=== PATIENT | female | born 1975 | race Two or more races ===

== ENCOUNTER 2017-09-09 22:50 | Inpatient (IN) | payer SELFPAY ==
[~2017-09-09] VITALS: Ht 154.9 cm; Wt 59.9 kg
[2017-09-09] MEDS ORDERED: METHYLPREDNISOLONE SOD SUCC 125 MG/2 ML VIAL IV STA (23:05)
[2017-09-09] MEDS ORDERED: ASPIRIN 81MG TABLET PO ONE (23:15)
[2017-09-09] MEDS ORDERED: MAGNESIUM 2 G PREMIX 50 ML IV ONE (23:15)
[2017-09-09 23:36] LABS: BG BASE EXCESS -4.1 mmol/L (-2.0-2.0); BG CARBOXYHEMOGLOBIN 0.4 % (0.5-1.5); BG FRACTION INSPIRED OXYGEN 24; BG HCO3 ACT 19.6 mmol/L (22.0-26.0); BG METHEMOGLOBIN 0.2 % (0.0-1.5); BG OXYGEN SATURATION 90.9 % (92.0-98.5); BG OXYHEMOGLOBIN 90.4 % (94.0-97.0); BG PCO2 32.5 mmHg (35.0-45.0); BG PH 7.398 (7.350-7.450); BG PO2 61.9 mmHg (75.0-100.0); BG SAMPLE SITE RIGHT RADIAL; BG TOTAL HEMOGLOBIN 15.6 g/dL (12.0-18.0); BG VENT MODE NASAL CANNULA
[2017-09-09 23:37] LABS: BASOPHILS % 0.6 % (0.0-2.0); EOSINOPHILS % 4.2 % (0.0-5.0); HEMATOCRIT. 44.8 % (36.0-48.0); HEMOGLOBIN. 14.8 g/dL (12.0-16.0); LYMPHOCYTES % 16.2 % (20.0-50.0); MEAN CORPUSCULAR VOLUME 90.8 fL (81.0-99.0); MEAN PLATELET VOLUME 9.7 fl (7.4-10.4); PLATELET 260 x1000/uL (130-400); RED BLOOD CELL COUNT 4.94 mill/uL (4.2-5.4); RED CELL DISTRIBUTION WIDTH 12.6 % (11.6-14.6)
[2017-09-09 23:41] LABS: D-DIMER 0.82 mg/L FEU (<0.50); INR 1.1; PROTHROMBIN TIME 11.2 sec (9.4-11.6)
[2017-09-09 23:53] LABS: HCG SCREEN NEGATIVE
[2017-09-10 00:01] LABS: CARBON DIOXIDE 23 mEq/L (21-32); CHLORIDE 107 mEq/L (98-107); ETHANOL BLOOD < 10 mg/dL; TROPONIN I < 0.02 ng/mL (0.00-0.04)
[2017-09-10] MEDS ORDERED: AZITHROMYCIN 500 MG in DEXT 5% WATER 250 ML IV NR (00:15)
[2017-09-10] MEDS ORDERED: CEFTRIAXONE 1 G PREMIX 50 ML IV NR (00:15)
[2017-09-10] MEDS ORDERED: SODIUM CHLORIDE 0.9% 1000ML BAG (SEPSIS BOLUS) IV NR (00:15)
[2017-09-10 01:25] LABS: *AMPHETAMINES SCREEN URINE NEGATIVE (NEGATIVE); *BARBITURATES SCREEN URINE NEGATIVE (NEGATIVE); *BENZODIAZEPINES SCREEN URINE NEGATIVE (NEGATIVE); *COCAINE SCREEN URINE NEGATIVE (NEGATIVE); CANNABINOID URINE SCREEN NEGATIVE (NEGATIVE); METHADONE URINE SCREEN NEGATIVE (NEGATIVE); OPIATES URINE SCREEN NEGATIVE (NEGATIVE); PHENCYCLIDINE URINE SCREEN NEGATIVE (NEGATIVE)
[2017-09-10] MEDS ORDERED: SODIUM CHLORIDE 0.9% 1,000 ML IV NR (01:50)
[2017-09-10] MEDS ORDERED: IOHEXOL-350 100 ML BOTTLE ONE (03:09)
[2017-09-10] MEDS ORDERED: HYDROCODONE/ACETAMINOPHEN 5/325MG TABLET PO ONE (04:30)
[2017-09-10 08:15] VITALS: BP 109/67
[2017-09-10 12:00] VITALS: BP 106/67
[2017-09-10] MEDS ORDERED: IPRATROPIUM/ALBUTEROL 0.5-3(2.5)MG/3ML NEB INH PRN (12:30)
[2017-09-10] MEDS ORDERED: ONDANSETRON HCL 4MG/2ML VIAL IV PRN (12:30)
[2017-09-10] MEDS ORDERED: ACETAMINOPHEN 325MG TABLET PO PRN (12:30)
[2017-09-10] MEDS ORDERED: CLONIDINE 0.1MG TABLET PO PRN (12:30)
[2017-09-10] MEDS ORDERED: HYDROCODONE/ACETAMINOPHEN 5/325MG TABLET PO PRN (12:30)
[2017-09-10] MEDS ORDERED: DIPHENHYDRAMINE 50MG/ML VIAL IV PRN (12:30)
[2017-09-10] MEDS: METHYLPREDNISOLONE SOD SUCC 125 MG/2 ML VIAL IV SCH ×2 (13:23→20:36)
[2017-09-10] MEDS: IPRATROPIUM/ALBUTEROL 0.5-3(2.5)MG/3ML NEB INH SCH ×3 (14:03→20:50)
[2017-09-10 16:00] VITALS: BP 105/63
[2017-09-10 20:18] VITALS: BP 95/58
[2017-09-10] MEDS: BUDESONIDE 0.5MG/2ML NEB HHN SCH (20:50)
[2017-09-11 00:10] VITALS: BP 97/58
[2017-09-11] MEDS: IPRATROPIUM/ALBUTEROL 0.5-3(2.5)MG/3ML NEB INH SCH ×6 (00:28→20:08)
[2017-09-11 04:00] VITALS: BP 93/61
[2017-09-11] MEDS: METHYLPREDNISOLONE SOD SUCC 125 MG/2 ML VIAL IV SCH (05:23)
[2017-09-11 06:21] LABS: BASOPHILS % 0.1 % (0.0-2.0); EOSINOPHILS % 0.1 % (0.0-5.0); HEMATOCRIT. 38.9 % (36.0-48.0); HEMOGLOBIN. 13.1 g/dL (12.0-16.0); LYMPHOCYTES % 9.3 % (20.0-50.0); MEAN CORPUSCULAR VOLUME 92.2 fL (81.0-99.0); MEAN PLATELET VOLUME 9.9 fl (7.4-10.4); MONOCYTES % 2.3 % (2.0-8.0); NEUTROPHILS % 88.2 % (40.0-76.0); PLATELET 226 x1000/uL (130-400); RED BLOOD CELL COUNT 4.22 mill/uL (4.2-5.4); RED CELL DISTRIBUTION WIDTH 12.8 % (11.6-14.6)
[2017-09-11 06:50] LABS: CARBON DIOXIDE 22 mEq/L (21-32); CHLORIDE 110 mEq/L (98-107); HDL CHOLESTEROL 57 mg/dL (40-59); LDL CHOLESTEROL 72 mg/dL (5-100)
[2017-09-11 08:00] VITALS: BP 101/60
[2017-09-11] MEDS: BUDESONIDE 0.5MG/2ML NEB HHN SCH ×2 (09:21→20:08)
[2017-09-11 11:27] VITALS: BP 98/61
[2017-09-11] MEDS ORDERED: METHYLPREDNISOLONE SOD SUCC 40 MG/ML VIAL IV SCH (14:00)
[2017-09-11 16:00] VITALS: BP 94/64
[2017-09-11] MEDS ORDERED: MONTELUKAST SODIUM 10MG TABLET PO SCH (17:00)
[2017-09-11 20:05] VITALS: BP 98/61
[2017-09-12] MEDS: IPRATROPIUM/ALBUTEROL 0.5-3(2.5)MG/3ML NEB INH SCH ×4 (00:18→11:55)
[2017-09-12 00:20] VITALS: BP 105/62
[2017-09-12 04:00] VITALS: BP 95/54
[2017-09-12 06:38] LABS: BASOPHILS % 0.6 % (0.0-2.0); EOSINOPHILS % 0.4 % (0.0-5.0); HEMATOCRIT. 36.4 % (36.0-48.0); HEMOGLOBIN. 12.3 g/dL (12.0-16.0); MEAN CORPUSCULAR HEMOGLOBIN 30.7 pg (28.0-32.0); MEAN CORPUSCULAR VOLUME 90.9 fL (81.0-99.0); PLATELET 219 x1000/uL (130-400); RED CELL DISTRIBUTION WIDTH 12.5 % (11.6-14.6)
[2017-09-12 08:00] VITALS: BP 98/60
[2017-09-12 08:06] LABS: CARBON DIOXIDE 26 mEq/L (21-32); CHLORIDE 108 mEq/L (98-107)
[2017-09-12] MEDS: BUDESONIDE 0.5MG/2ML NEB HHN SCH (08:16)
[2017-09-12] MEDS ORDERED: PREDNISONE 20MG TABLET PO SCH (09:00)
[2017-09-12 12:00] VITALS: BP 100/62
[2017-09-12 13:01] VITALS: BP 100/62
== END 2017-09-12 17:40 | disposition home or self-care (01) | DRG 140 ==
LOC: ER 22:50 → 7WST 09-10 01:53 → EDBEDREQTM 09-10 01:56 → EDBEDREQDT 09-10 01:56 → EDBEDREQ 09-10 01:56 → ENRESERV 09-10 06:57
PROVIDERS: ADMIT Internal Medicine; ATTEND Internal Medicine
DX: J44.1 Chronic obstructive pulmonary disease with (acute) exacerbation (principal); J96.01 Acute respiratory failure with hypoxia; E87.2 Acidosis; D72.829 Elevated white blood cell count, unspecified; R73.9 Hyperglycemia, unspecified; Z77.120 Contact with and (suspected) exposure to mold (toxic); Z82.49 Family history of ischemic heart disease and other diseases of the circulatory system
CPT/HCPCS: 36415; 36600; 71010; 71275; 80048; 80053; 80061; 80305; 82375; 82805; 82962; 83036; 83605; 83690; 83880; 84145; 84484; 84703; 85025; 85379; 85610; 86606; 87040; 87070; 87086; 87186; 87804; 93005; 94640; 94664; 96365; 96367; 96375; 99285; G0482; J0456; J0696; J2930; J3475; J7030; J7060; J7512; J7620; J7626; Q9967